=== PATIENT | male | born 1990 | race Caucasian/White ===

== ENCOUNTER 2016-12-30 18:48 | Emergency (ER) | payer BC, OTHER ==
[~2016-12-30] VITALS: Ht 185.4 cm; Wt 75.9 kg
[~2016-12-30 18:48] MED LIST: LRT5 PO; PRED20TA PO
[2016-12-30 18:56] VITALS: TEMP 37.1; Ht 185.4 cm; Wt 75.9 kg
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
[2016-12-30] MEDS ORDERED: CEPHALEXIN 500MG HOME PACK 1 EA BTL PO ONE (19:30)
[2016-12-30] MEDS ORDERED: DIPHTHERIA/TETANUS/PERTUSSIS 0.5 ML SYR/VIAL IM. ONE (19:30)
[2016-12-30] MEDS ORDERED: CEPHALEXIN MONOHYDRATE 250 MG CAP PO ONE (19:30)
[2016-12-30 20:21] VITALS: BP 130/71; PULSE 71; O2SAT 98
== END 2016-12-30 20:22 | disposition home or self-care (01) ==
LOC: C.EDB 18:49 → C.EDD 20:22
DX: S81.811A Laceration without foreign body, right lower leg, initial encounter (principal); W45.8XXA Other foreign body or object entering through skin, initial encounter; Y92.89 Other specified places as the place of occurrence of the external cause; Y93.55 Activity, bike riding